=== PATIENT | male | born 1960 | race Caucasian/White ===

== ENCOUNTER 2018-05-09 10:28 | Emergency (ER) | payer OTHER, SELFPAY ==
--- NOTE | 2018-05-09 10:20 | EKG12_ITS ---
Test Reason : CP Blood Pressure : / mmHG Vent. Rate : 074 BPM Atrial Rate : 074 BPM P-R Int : 108 ms QRS Dur : 094 ms QT Int : 400 ms P-R-T Axes : 041 -07 021 degrees QTc Int : 444 ms Sinus rhythm with short MD Otherwise normal ECG Confirmed by PRIYA SHAW, PINO ([id number]), assignment editor KATHIA AMARO ([id number] on 05/14/2018 2:36:32 PM Referred By: DANIEL Confirmed By:PINO POWERS MD
[2018-05-09 10:30] VITALS: BP 149/85; PULSE 77; RESP 12; TEMP 525.3; TEMP 977.6; O2SAT 99; BMI 34.0
--- NOTE | 2018-05-09 10:48 | ED.DCSUM_ITS ---
- ER Visit Summary Date of Service: 05/09/18 Chief Complaint: Abdominal pain History of Present Illness: The patient is a 58 M the Monday after work he came home. He felt very. In the middle night he began to have nausea vomiting diarrhea. He was unable to go work on Monday. He states that today he tried to go to work but just felt full so fatigued he needed to call off. Went to urgent care was sent here. Patient notes some intermittent crampy abdominal pain that is followed by diarrhea and then resolved. He notes continued decreased p.o. The vomiting has resolved. No definitive fever at home. He states that on Monday he felt like he could not catch his breath. He has not had any significant chest pains. He denies any urinary symptoms. No blood or black or tarry stools. Describes the stool as brown water. No recent travel or bad food or water exposure. No recent antibiotics. Physical Examination: Afebrile vital signs stable Gen: Well-nourished well-developed Head: Normocephalic atraumatic Eyes: Perrl EOMI ENT: TMs clear no rhinorrhea moist mucous membranes Neck: Supple no lymphadenopathy no JVD nontender CVS: Regular rate rhythm no murmurs normal S1-S2 Respiratory: No distress clear to auscultation bilaterally chest nontender Abdomen: Soft nontender nondistended hyperactive bowel sounds no masses Back: Nontender Extremity: Nontender no edema Skin: Normal color no rash Neuro: alert orientated ?3 CN II-XII intact normal strength sensation reflexes gait cerebellar Psych: Normal affect normal mood Test Results: EKG shows a sinus rhythm rate of 74 with a shortened ME interval no obvious delta waves. Basic labs were negative. Emergency Department Course and Treatment: Patient received IV fluids and Zofran. Patient will be discharged home with supportive care. Instructions for fluid hydration and Imodium as needed. Return if worsening or concerns Impression: 1. Gastroenteritis This note was generated with [employer] dictation software. It may contain incorrect words, spelling, and punctuation that were not noted in review of the chart prior to signing ED Disposition - Plan for ED Patient: Disposition: Home or Assisted Living Chief Complaint: General Illness Instructions: ED Gastroenteritis Viral Referrals: Tristian Lorenzo MD [STAFF PHYSICIAN] - 1-2 Weeks
[2018-05-09] MEDS: Ondansetron 4 MG/2 ML Vial IV (10:55)
[2018-05-09] MEDS: 0.9% Normal Saline 1,000 ML 1000 ML IV (10:55)
[2018-05-09 10:57] VITALS: BP 128/84; PULSE 78; RESP 14; O2SAT 96
[2018-05-09 11:14] LABS: Absolute Lymphocyte Count 1.03 X10^3/ul (0.83-4.51); Absolute Neutrophil Count 7.9 X10^3/uL (2.0-7.7); Basophil# 0.01 X10^3/uL; Basophil% 0.1 % (0-1); Eosinophil# 0.07 X10^3/uL; Eosinophils% 0.7 % (0-5); Hematocrit 46.2 % (40-54); Hemoglobin 15.8 g/dl (13.0-16.5); Lymphocyte # 1.03 X10^3/ul (4.0); Lymphocyte % 10.4 % (19-41); Mean Corp Hgb Conc 34.2 g/gl (32-36); Mean Corpuscular Hgb 31.3 pg (27.0-32.0); Mean Corpuscular Volume 91.5 fL (80-94); Mean Platelet Vol. 12.8 fl (6.2-12.0); Monocyte# 0.88 X10^3/uL; Monocyte% 8.9 % (0-10); Neutrophil # 7.85 X10^3/uL (2.7-7.7); Neutrophil % 79.7 % (47-70); Platelet Count 171 K/mm3 (150-450); RBC Distribution Width CV 13.7 % (11.6-14.6); RBC Distribution Width SD 44.8 fl (35.1-43.9); Red Blood Count 5.05 M/mm3 (4.6-6.2); White Blood Count 9.9 K/mm3 (4.4-11.0)
[2018-05-09 11:18] LABS: POSITIVE COUNT NO; POSITIVE DIFFERENTIAL NO; POSITIVE MORPHOLOGY NO
[2018-05-09 11:29] LABS: ALB/GLOB Ratio 0.9 RATIO (0.9-2.4); AST(SGOT) 31 U/L (15-37); Alanine Aminotransfer ALT/SGPT 46 U/L (16-61); Alkaline Phosphatase 66 U/L (45-117); Anion Gap 8 (5-15); BUN 19 mg/dL (7-18); BUN/Creat Ratio 16.4 RATIO (10-20); Calcium,Total 8.3 mg/dL (8.5-10.1); Chloride 108 mmol/L (98-107); Creatinine, Serum 1.16 mg/dL (0.70-1.30); EST Glomerular Filtration Rate 69 mL/min (>60); Est Glom Filt Rate - Afr Amer 83 mL/min (>60); Estimated Creatinine Clearance 72.55 ml/min; Globulin 4.3 g/dL (2.2-4.2); Glucose 113 mg/dL (74-106); Lipase 66 U/L (73-393); Potassium 3.9 mmol/L (3.5-5.1); Protein, Total 8.3 g/dL (6.4-8.2); Sodium Level 139 mmol/L (136-145)
[2018-05-09 12:59] VITALS: BP 124/74; PULSE 71; RESP 16; O2SAT 97
== END 2018-05-09 13:00 | disposition home or self-care (01) ==
PROVIDERS: Emergency Provider Emergency Medicine; Family Provider Family Medicine; PCP Family Medicine
DX: K52.9 Noninfective gastroenteritis and colitis, unspecified (principal)
CPT/HCPCS: 80053; 83690; 85025; 93005; 96361; 96374; 99283; J2405